=== PATIENT | female | born 1980 | race American Indian/Alaskan Native ===

== ENCOUNTER 2016-07-21 12:00 | Outpatient (CLI) | payer BC ==
--- NOTE | 2016-07-21 14:31 | Ultrasound Report ---
ULTRASOUND PELVIS COMPLETE - TRANSABDOMINAL AND TRANSVAGINAL: INDICATION: Menorrhagia. COMPARISON: None similar at this institution. FINDINGS: Transabdominal and transvaginal pelvic sonography performed in this patient with LMP of 07/04/2016 demonstrates an anteverted, heterogeneous 11.3 x 5.6 x 13.1 cm uterus. At least 2 fibroids identified, smaller anteroinferior approximately 2.6 x 1.7 cm, endovaginal image 16 while the larger posterosuperiorly is 9.4 x 7.7 x 9.3 cm, image 9. Endometrial stripe approximately 2.3 cm towards the fundus, endovaginal image 5. No significant free fluid. Right ovary not visualized. Unremarkable left ovary at 3.4 x 2.9 x 3.2 cm. CONCLUSION: Uterine fibroids and obscured right ovary, as described. Thank you for the opportunity to participate in this patient's care.
== END 2016-07-21 12:01 | disposition home or self-care (01) ==
LOC: US 12:00
PROVIDERS: ATTEND Obstetrics & Gynecology Gynecology
DX: D25.9 Leiomyoma of uterus, unspecified (principal); N85.4 Malposition of uterus
CPT/HCPCS: 76830; 76856

== ENCOUNTER 2018-06-07 22:34 | Emergency (ER) | payer OTHER ==
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
[2018-06-07] MEDS ORDERED: IBUPROFEN PO ONE (22:39)
--- NOTE | 2018-06-08 00:17 | XRay Report ---
PROCEDURE: LUMBAR SPINE, 2 VIEWS TECHNIQUE: Lumbar spine radiographs, frontal and lateral views. CPT 90148 HISTORY: Trauma COMPARISONS: None . FINDINGS: Alignment: Normal . Vertebral body heights/Disk spaces: Normal . Fracture(s): None . Facets: Normal . Bone mineralization: Normal . IMPRESSION: Normal Examination . This document is electronically signed by Grabiel Ley MD., June 08 2018 12:15:24 AM ET
[2018-06-08] MEDS ORDERED: IBUPROFEN ONE (01:00)
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
[2018-06-08 01:56] VITALS: BP 121/78
== END 2018-06-08 01:35 | disposition home or self-care (01) ==
LOC: ED 22:34
DX: S39.012A Strain of muscle, fascia and tendon of lower back, initial encounter (principal); V49.49XA Driver injured in collision with other motor vehicles in traffic accident, initial encounter; Y93.89 Activity, other specified; Y92.89 Other specified places as the place of occurrence of the external cause; Y99.8 Other external cause status
CPT/HCPCS: 72100